=== PATIENT | male | born 1980 | race Two or more races ===

== ENCOUNTER 2019-11-15 10:27 | Emergency (ER) | payer MEDICAID, OTHER ==
[~2019-11-15] VITALS: Ht 172.7 cm; Wt 77.1 kg
[2019-11-15 10:42] VITALS: BP 137/73
[2019-11-15] MEDS ORDERED: KETOROLAC TROMETH 60MG/2ML VIAL IM ONE (11:45)
[2019-11-15] MEDS ORDERED: METHOCARBAMOL 500 MG TAB PO ONE (11:45)
== END 2019-11-15 11:38 | disposition home or self-care (01) ==
LOC: ER 10:27
DX: L73.9 Follicular disorder, unspecified (principal); F17.210 Nicotine dependence, cigarettes, uncomplicated

== ENCOUNTER 2019-11-29 13:21 | Emergency (ER) | payer MEDICAID ==
[~2019-11-29] VITALS: Ht 172.7 cm; Wt 79.4 kg
[2019-11-29 14:45] VITALS: BP 139/94
== END 2019-11-29 14:59 | disposition home or self-care (01) ==
LOC: ER 13:21
DX: S39.012D Strain of muscle, fascia and tendon of lower back, subsequent encounter (principal); Z76.0 Encounter for issue of repeat prescription; X58.XXXD Exposure to other specified factors, subsequent encounter

== ENCOUNTER 2020-02-07 16:20 | Emergency (ER) | payer MEDICAID ==
[~2020-02-07] VITALS: Ht 172.7 cm; Wt 83.9 kg
[2020-02-07 17:09] VITALS: BP 120/67
[2020-02-07] MEDS ORDERED: cefTRIAXone SOD 1,000 MG VL IM ONE (17:15)
[2020-02-07] MEDS ORDERED: CLINDAMYCIN HCL 150 MG CAP PO ONE (17:15)
== END 2020-02-07 17:23 | disposition home or self-care (01) ==
LOC: ER 16:20
DX: L02.211 Cutaneous abscess of abdominal wall (principal)
CPT/HCPCS: 71046; 74176; 96372; 99284; J0696

== ENCOUNTER 2020-02-11 12:20 | Emergency (ER) | payer MEDICAID ==
[~2020-02-11] VITALS: Ht 172.7 cm; Wt 83.9 kg
[2020-02-11 12:48] VITALS: BP 126/97
== END 2020-02-11 13:53 | disposition home or self-care (01) ==
LOC: ER 12:20
DX: L02.211 Cutaneous abscess of abdominal wall (principal); Z48.01 Encounter for change or removal of surgical wound dressing; F17.210 Nicotine dependence, cigarettes, uncomplicated; F12.10 Cannabis abuse, uncomplicated; F15.10 Other stimulant abuse, uncomplicated

== ENCOUNTER 2020-02-27 10:35 | Emergency (ER) | payer MEDICAID ==
[~2020-02-27] VITALS: Ht 172.7 cm; Wt 83.9 kg
[2020-02-27 11:08] LABS: Basophils # (auto) 0.1 10 ^3/uL (0-0.2); Basophils % (auto) 1.1 % (0.0-2.0); Eosinophils # (auto) 0.4 10 ^3/uL (0-0.8); Eosinophils % (auto) 4.3 % (0.0-7.0); Hemoglobin 16.1 g/dL (13.5-17.5); Mean Corpuscular Hemoglobin 30.7 pg (28.0-32.0); Mean Corpuscular Hgb Conc. 33.5 g/dL (32.0-36.0); Mean Corpuscular Volume 91.6 fL (80.0-100.0); Monocytes # (auto) 0.5 10 ^3/uL (0-1.3); Monocytes % (auto) 5.1 % (0.0-12.0); Neutrophils # (auto) 6.1 10 ^3/uL (1.6-8.6); Neutrophils % (auto) 67.5 % (37.0-80.0); Nucleated Red Blood Cells % 0.1 %; Platelet Count (auto) 373 10^3/uL (140-450); Red Blood Cells 5.24 10^6/uL (4.5-5.90); White Blood Cell 9.1 10^3/uL (4.4-10.8)
[2020-02-27 11:24] VITALS: BP 135/92
[2020-02-27 11:35] LABS: Potassium 3.8 mmol/L (3.5-5.1)
[2020-02-27 11:46] LABS: Albumin 3.9 g/dL (3.4-5.0); BUN/Creatinine Ratio 11.6; Bilirubin, Total 0.2 mg/dL (0.2-1.0); Calcium 9.2 mg/dL (8.5-10.1)
[2020-02-27 12:02] LABS: Urine WBC None Seen /hpf (0 - 3)
[2020-02-27 12:34] LABS: Urine Bacteria NONE SEEN /hpf (None Seen); Urine Blood Negative /uL (Negative); Urine Specific Gravity 1.005 (1.001-1.035)
== END 2020-02-27 12:31 | disposition home or self-care (01) ==
LOC: ER 10:35
DX: R10.9 Unspecified abdominal pain (principal); F15.90 Other stimulant use, unspecified, uncomplicated; F17.210 Nicotine dependence, cigarettes, uncomplicated
CPT/HCPCS: 36415; 74176; 80053; 81001; 85025; 93005

== ENCOUNTER 2021-02-09 11:23 | Emergency (ER) | payer MEDICAID ==
[~2021-02-09] VITALS: Ht 170.2 cm; Wt 83.9 kg
[2021-02-09 11:46] LABS: Urine Bacteria NONE SEEN /hpf (None Seen); Urine Blood Negative /uL (Negative); Urine Specific Gravity 1.015 (1.001-1.035); Urine WBC <1 /hpf (0 - 3)
[2021-02-09 11:49] LABS: Basophils # (auto) 0.1 10 ^3/uL (0-0.2); Basophils % (auto) 0.9 % (0.0-2.0); Eosinophils # (auto) 0.6 10 ^3/uL (0-0.8); Eosinophils % (auto) 5.6 % (0.0-7.0); Hemoglobin 13.7 g/dL (13.5-17.5); Lymphocytes # (auto) 2.6 10 ^3/uL (0.4-5.4); Lymphocytes % (auto) 26.4 % (10.0-50.0); Mean Corpuscular Hemoglobin 29.3 pg (28.0-32.0); Mean Corpuscular Hgb Conc. 33.3 g/dL (32.0-36.0); Mean Corpuscular Volume 87.9 fL (80.0-100.0); Monocytes # (auto) 0.8 10 ^3/uL (0-1.3); Monocytes % (auto) 8.1 % (0.0-12.0); Neutrophils # (auto) 5.9 10 ^3/uL (1.6-8.6); Nucleated Red Blood Cells % 0.2 %; Red Blood Cells 4.66 10^6/uL (4.5-5.90); Red Cell Distribution Width 14.3 % (11.8-14.3); White Blood Cell 9.9 10^3/uL (4.4-10.8)
[2021-02-09 12:01] LABS: Alcohol, Urine < 3.0 mg/dL (0-10); Amphetamine Screen, Urine NEGATIVE (NEGATIVE); Barbiturate Scree,Urine NEGATIVE (NEGATIVE); Benzodiazephine Screen, Urine NEGATIVE (NEGATIVE); Cannabinoid Screen, Urine POSITIVE (NEGATIVE); Cocaine Screen, Urine NEGATIVE (NEGATIVE); Phencyclidine Screen, Urine NEGATIVE (NEGATIVE)
[2021-02-09 12:08] LABS: Opiate Scree,Urine NEGATIVE (NEGATIVE)
[2021-02-09 12:31] LABS: Alanine Aminotransferase 27 U/L (16-61); Albumin 3.2 g/dL (3.4-5.0); Anion Gap 7 (5-15); Aspartate Aminotransferase 14 U/L (15-37); BUN/Creatinine Ratio 10.8; Blood Urea Nitrogen 9 mg/dL (7-18); Calcium 8.2 mg/dL (8.5-10.1); Carbon Dioxide 27 mmol/L (21-32); Chloride 108 mmol/L (98-107); GFR African American 133 mL/min; GFR Non-African American 110 mL/min; Glucose 87 mg/dL (74-106); Potassium 3.9 mmol/L (3.5-5.1); Sodium 142 mmol/L (136-145)
[2021-02-09 12:36] LABS: Alkaline Phosphatase 92 U/L (45-117); Bilirubin, Total 0.1 mg/dL (0.2-1.0)
[2021-02-09] MEDS ORDERED: IOHEXOL 300 MG/ML 100ML BOTTLE IJ ONE (13:15)
[2021-02-09] MEDS ORDERED: IBUPROFEN 600 MG TAB PO ONE (15:00)
[2021-02-09 21:52] VITALS: BP 131/68
== END 2021-02-09 22:16 | disposition home or self-care (01) ==
LOC: ER 11:23
DX: M43.16 Spondylolisthesis, lumbar region (principal); F17.210 Nicotine dependence, cigarettes, uncomplicated; F15.10 Other stimulant abuse, uncomplicated
CPT/HCPCS: 36415; 72132; 80053; 80307; 81001; 83605; 84484; 85025; 85652; 93005; 99285; Q9967

== ENCOUNTER 2021-03-06 09:30 | Emergency (ER) | payer MEDICAID ==
[~2021-03-06] VITALS: Ht 172.7 cm; Wt 83.9 kg
[2021-03-06 10:35] VITALS: BP 113/83
[2021-03-06] MEDS ORDERED: KETOROLAC TROMETH 60MG/2ML VIAL IM ONE (11:00)
== END 2021-03-06 11:27 | disposition home or self-care (01) ==
LOC: ER 09:30
DX: S39.012A Strain of muscle, fascia and tendon of lower back, initial encounter (principal); M48.061 Spinal stenosis, lumbar region without neurogenic claudication; M51.86 Other intervertebral disc disorders, lumbar region; F17.210 Nicotine dependence, cigarettes, uncomplicated; X58.XXXA Exposure to other specified factors, initial encounter; Y93.89 Activity, other specified; Y92.89 Other specified places as the place of occurrence of the external cause; Y99.8 Other external cause status
CPT/HCPCS: 96372; 99283; J1885

== ENCOUNTER 2021-04-30 08:18 | Emergency (ER) | payer MEDICAID ==
[~2021-04-30] VITALS: Ht 172.7 cm; Wt 81.6 kg
[2021-04-30 13:11] VITALS: BP 108/73
== END 2021-04-30 13:32 | disposition home or self-care (01) ==
LOC: ER 08:18
DX: J98.01 Acute bronchospasm (principal); F15.10 Other stimulant abuse, uncomplicated; F17.210 Nicotine dependence, cigarettes, uncomplicated; Z20.822 Contact with and (suspected) exposure to COVID-19
CPT/HCPCS: 36415; 71046; 87426

== ENCOUNTER 2021-11-15 17:16 | Emergency (ER) | payer MEDICAID ==
[~2021-11-15] VITALS: Ht 170.2 cm; Wt 83.9 kg
[2021-11-15] MEDS ORDERED: ONDANSETRON HCL 4 MG/2 ML VIAL IV ONE (17:30)
[2021-11-15] MEDS ORDERED: PANTOPRAZOLE 40 MG/10 ML VIAL INJ IV ONE (17:30)
[2021-11-15] MEDS ORDERED: SODIUM CHLORIDE 0.9% 1,000 ML IV ONE (18:15)
[2021-11-15 19:03] LABS: Basophils # (auto) 0.1 10 ^3/uL (0-0.2); Basophils % (auto) 1.1 % (0.0-2.0); Eosinophils # (auto) 0.5 10 ^3/uL (0-0.8); Eosinophils % (auto) 5.9 % (0.0-7.0); Hematocrit 43.4 % (41.0-53.0); Hemoglobin 14.4 g/dL (13.5-17.5); Lymphocytes # (auto) 1.9 10 ^3/uL (0.4-5.4); Lymphocytes % (auto) 22.9 % (10.0-50.0); Mean Corpuscular Hgb Conc. 33.3 g/dL (32.0-36.0); Mean Corpuscular Volume 90.1 fL (80.0-100.0); Monocytes # (auto) 0.5 10 ^3/uL (0-1.3); Monocytes % (auto) 5.8 % (0.0-12.0); Neutrophils # (auto) 5.3 10 ^3/uL (1.6-8.6); Neutrophils % (auto) 64.3 % (37.0-80.0); Nucleated Red Blood Cells % 0.2 %; Red Blood Cells 4.81 10^6/uL (4.5-5.90); Red Cell Distribution Width 14.2 % (11.8-14.3); White Blood Cell 8.3 10^3/uL (4.4-10.8)
[2021-11-15 19:25] LABS: Albumin 3.9 g/dL (3.4-5.0); Amylase 63 U/L (25-115); Anion Gap 9 (5-15); Blood Alcohol < 3.0 mg/dL (0-5); Blood Urea Nitrogen 10 mg/dL (7-18); Calcium 8.9 mg/dL (8.5-10.1); Carbon Dioxide 22 mmol/L (21-32); Chloride 113 mmol/L (98-107); Glucose 119 mg/dL (74-106); Lipase 95 U/L (73-393); Sodium 144 mmol/L (136-145)
[2021-11-15 19:33] LABS: Alanine Aminotransferase 84 U/L (16-61); Alkaline Phosphatase 79 U/L (45-117); Aspartate Aminotransferase 38 U/L (15-37); BUN/Creatinine Ratio 9.1; Bilirubin, Total 0.2 mg/dL (0.2-1.0); GFR African American 95 mL/min; GFR Non-African American 79 mL/min; Total Protein 7.4 g/dL (6.4-8.2)
[2021-11-15 19:44] LABS: Urine Bacteria NONE SEEN /hpf (None Seen); Urine Blood Negative /uL (Negative); Urine Specific Gravity 1.014 (1.001-1.035); Urine WBC 1 /hpf (0 - 3)
[2021-11-15 19:45] LABS: Alcohol, Urine < 3.0 mg/dL (0-10); Amphetamine Screen, Urine NEGATIVE (NEGATIVE); Barbiturate Scree,Urine NEGATIVE (NEGATIVE); Benzodiazephine Screen, Urine NEGATIVE (NEGATIVE); Cannabinoid Screen, Urine POSITIVE (NEGATIVE); Cocaine Screen, Urine NEGATIVE (NEGATIVE); Opiate Scree,Urine NEGATIVE (NEGATIVE); Phencyclidine Screen, Urine NEGATIVE (NEGATIVE)
[2021-11-15] MEDS ORDERED: ONDA-144 PO (20:13)
[2021-11-15] MEDS ORDERED: PANT40TA2 PO (20:13)
[2021-11-15 22:25] VITALS: BP 139/88
== END 2021-11-16 02:25 | disposition home or self-care (01) ==
LOC: ER 17:16
DX: R10.84 Generalized abdominal pain (principal); F10.10 Alcohol abuse, uncomplicated; R19.7 Diarrhea, unspecified; F17.210 Nicotine dependence, cigarettes, uncomplicated; Y90.0 Blood alcohol level of less than 20 mg/100 ml
CPT/HCPCS: 36415; 74176; 80053; 80307; 80320; 81001; 82150; 83690; 84484; 85025; 93005; 96361; 96374; 96375; 99285; C9113; J2405; J7030

== ENCOUNTER 2022-02-22 05:56 | Emergency (ER) | payer MEDICAID ==
[~2022-02-22] VITALS: Ht 172.7 cm; Wt 82.0 kg
[~2022-02-22 05:56] MED LIST: ONDA-144 PO; PANT40TA2 PO
[2022-02-22 08:18] VITALS: BP 126/78
[2022-02-22] MEDS ORDERED: IBUP800T27 PO (08:48)
[2022-02-22] MEDS ORDERED: METH750T22 PO (08:49)
[2022-02-22] MEDS ORDERED: IBUPROFEN 800 MG TAB PO ONE (09:00)
== END 2022-02-22 08:58 | disposition home or self-care (01) ==
LOC: ER 05:56
DX: S46.912A Strain of unspecified muscle, fascia and tendon at shoulder and upper arm level, left arm, initial encounter (principal); F17.210 Nicotine dependence, cigarettes, uncomplicated; Z79.1 Long term (current) use of non-steroidal anti-inflammatories (NSAID); Z79.899 Other long term (current) drug therapy; X58.XXXA Exposure to other specified factors, initial encounter; Y93.89 Activity, other specified; Y92.89 Other specified places as the place of occurrence of the external cause; Y99.8 Other external cause status

== ENCOUNTER 2022-08-09 10:03 | Emergency (ER) | payer MEDICAID ==
[~2022-08-09] VITALS: Ht 170.2 cm; Wt 83.1 kg
[~2022-08-09 10:03] MED LIST changes: +IBUP800T27 PO; +METH750T22 PO
[2022-08-09] MEDS ORDERED: CLIN300C8 PO (12:01)
[2022-08-09] MEDS ORDERED: IBUP800T27 PO (12:01)
[2022-08-09 12:06] VITALS: BP 131/92
== END 2022-08-09 12:07 | disposition home or self-care (01) ==
LOC: ER 10:03
DX: K04.7 Periapical abscess without sinus (principal); F17.210 Nicotine dependence, cigarettes, uncomplicated; Z79.1 Long term (current) use of non-steroidal anti-inflammatories (NSAID); Z79.2 Long term (current) use of antibiotics; Z79.899 Other long term (current) drug therapy

== ENCOUNTER 2022-09-14 12:31 | Emergency (ER) | payer MEDICAID ==
[~2022-09-14] VITALS: Ht 170.2 cm; Wt 80.8 kg
[~2022-09-14 12:31] MED LIST changes: +CLIN300C8 PO
[2022-09-14 12:51] VITALS: BP 125/85
[2022-09-14] MEDS ORDERED: DOXY-286 PO (14:50)
== END 2022-09-14 14:51 | disposition home or self-care (01) ==
LOC: ER 12:31
DX: L03.114 Cellulitis of left upper limb (principal); F17.210 Nicotine dependence, cigarettes, uncomplicated; F12.10 Cannabis abuse, uncomplicated

== ENCOUNTER 2023-07-25 11:46 | Emergency (ER) | payer MEDICAID ==
[~2023-07-25] VITALS: Ht 170.2 cm; Wt 90.6 kg
[~2023-07-25 11:46] MED LIST changes: +CLIN300C70 PO; -CLIN300C8 PO; +DOXY-286 PO; +IBUP-1456 PO; -IBUP800T27 PO; +METH-1182 PO; -METH750T22 PO
[2023-07-25 12:44] VITALS: BP 121/86; PULSE 73; RESP 16; TEMP 98.5; O2SAT 96
[2023-07-25] MEDS ORDERED: IBUP1TAB5 PO (13:58)
== END 2023-07-25 14:16 | disposition home or self-care (01) ==
LOC: ER 11:46
DX: K08.89 Other specified disorders of teeth and supporting structures (principal); F41.9 Anxiety disorder, unspecified; F17.210 Nicotine dependence, cigarettes, uncomplicated; F15.90 Other stimulant use, unspecified, uncomplicated; Z79.899 Other long term (current) drug therapy

== ENCOUNTER 2024-07-27 12:20 | Emergency (ER) | payer MEDICAID ==
[~2024-07-27] VITALS: Ht 170.2 cm; Wt 82.8 kg
[~2024-07-27 12:20] MED LIST changes: +CLIN1CAP70 PO; -CLIN300C70 PO; +IBUP1TAB5 PO
[2024-07-27] MEDS ORDERED: ERY05OO OP (15:00)
--- NOTE | 2024-07-27 15:00 | ED.PDOC ---
Eye-HPI HPI Comments 44 year male presents for conjunctival injection to the left eye Denies vision changes Denies eye discharge Denies hearing changes, nausea, vomiting Denies eye pain with movement, eye pain in general, difficulty keeping eye open, feeling of something stuck in the eye, sensitivity to light Chief Complaint: Eye Problem Time Seen by MD: 13:09 Primary Care Provider: MARLEN Niño Notes: Nurses Notes, Medications, Allergies Allergies: Coded Allergies: NO KNOWN ALLERGIES (Unverified , 11/15/19) Home Meds Active Scripts Ibuprofen Micronized (Ibuprofen) 600 Mg Tab, 600 MG PO Q6HPRN PRN for 5 Days, #20 TAB Prov:ARCENIO JONES PLUMBING INSTALLER 07/25/23 Doxycycline Hyclate (DOXYCYCLINE HYCLATE) 100 Mg Tab, 1 TAB PO BID for 14 Days, #28 TAB Prov:LAURA BECERRIL DO 09/14/22 Ibuprofen (Ibuprofen) 800 Mg Tab, 1 TAB PO TID, #30 TAB Prov:KING ADAMS 08/09/22 Clindamycin Hcl (Clindamycin Hcl) 300 Mg Cap, 300 MG PO QID, #32 CAP Prov:KING ADAMS 08/09/22 Methocarbamol (Methocarbamol) 750 Mg Tab, 750 MG PO QHSP PRN for 20 Days, #20 TAB Prov:KING ADAMS 02/22/22 Ibuprofen (Ibuprofen) 800 Mg Tab, 800 MG PO TID PRN, #30 TAB Prov:KING ADAMS 02/22/22 Pantoprazole Sodium Sesquihydr (Protonix) 40 Mg Tab, 40 MG PO DAILY, #30 TAB Prov:JOHN PICKETT MD 11/15/21 Ondansetron (Zofran) 4 Mg Tab, 1 TAB PO Q6HR, #20 TAB Prov:JOHN PICKETT MD 11/15/21 Information Source: Patient Mode of Arrival: Ambulatory Past Medical History PAST MEDICAL HISTORY: Anxiety Surgical History: Denies all surgeries Family History Family History: Reviewed,noncontributory to illness Social History Smoker: Cigarettes, Greater Than 1 Pack/Day Alcohol: Occasionally Drugs: Marijuana Lives In: Home All Other Systems: Reviewed and Negative (per hpi) Physical Exam General Appearance: No Apparent Distress, Normal HEENT: Normal ENT Inspection, PERRL/EOMI (L eye: conjunctival injection. vision intact), Pharynx Normal, TMs Normal Neck: Full Range of Motion, Non-Tender, Normal, Normal Inspection Respiratory: Chest Non-Tender, Lungs Clear, No Accessory Muscle Use, No Respiratory Distress, Normal Breath Sounds Cardiovascular: No Edema, No JVD, No Murmur, No Gallop, Normal Peripheral Pulses, Regular Rate/Rhythm Breast Exam: Deferred Gastrointestinal: No Organomegaly, Non Tender, No Pulsatile Mass, Normal Bowel Sounds, Soft Genitalia: Deferred Pelvic: Deferred Rectal: Deferred Extremities: No calf tenderness, Normal capillary refill, Normal inspection, Normal range of motion, Non-tender, No pedal edema Musculoskeletal : Apperance: Normal Neurologic: Alert, outside sales engineer II-XII nml as Tested, No Motor Deficits, Normal Affect, Normal Mood, No Sensory Deficits Cerebellar Function: Normal Reflexes: Normal Skin: Dry, Normal Color, Warm Lymphatic: No Adenopathy Was a procedure done? Was a procedure done?: No EENT DIFF Eye: Bacterial, Viral X-Ray, Labs, Meds, VS Vital Signs Date Time Temp Pulse Resp B/P (MAP) Pulse Ox O2 Delivery O2 Flow Rate FiO2 07/27/24 12:40 98.9 133 20 143/106 (118) 100 X-Ray, Labs, Meds, VS Comment Presentation consistent with bacterial conjunctivitis. Patient is otherwise afebrile and well-appearing without clinical evidence of pre-septal cellulitis or orbital cellulitis. No recent history concerning for corneal abrasion or retained foreign body. No corneal opacity of keratitis, no ciliary flush on exam Prescription for topical antibiotics provided. On reevaluation, patient had symptomatic improvement. Patient is stable for discharge at this time. External notes reviewed. Test results and diagnostic imaging interpreted. All diagnostic findings, discharge care, education and instructions provided Follow-up with PCP in 2 to 3 days Patient verbalized understanding and agreed to treatment plan Vital signs stable, afebrile, no acute distress noted Patient ambulatory with strong steady gait Advised to return precautions for any new or worsening symptoms, return to ER immediately for re-evaluation Patient is aware that the purpose of this visit was for an acute medical emergency requiring emergent stabilization. Chronic conditions, including malignancies have not been ruled out. Patient is instructed to follow up with PCP as directed and discharge instructions for continued care and workup. If unable to arrange follow-up, patient is to return to the emergency department for reassessment. Patient (parent or legal guardian if applicable) was given verbal and written discharge instructions and acknowledges understanding. Time of 1ST Reevaluation: 14:51 Reevaluation 1ST: Improved Patient Education/Counseling: Diagnosis, Treatment Family Education/Counseling: Diagnosis, Treatment Departure 1 Departure Time of Disposition: 14:58 Impression: Primary Impression: Conjunctivitis Qualified Codes: H10.32 - Unspecified acute conjunctivitis, left eye Disposition: HOME / SELF CARE / HOMELESS Condition: Stable e-Prescriptions Erythromycin (Erythromycin) 5 Mg/Gm Oin 1 APPLIC OP QID for 10 Days, #5 GRAMS 0 Refills Prov: ADELINE CLINE PLUMBING INSTALLER 07/27/24 Critical Care Note Critical Care Time?: No Stability Stability form required: No Heart Score Heart Score: Heart Score Response (Comments) Value History N/A 0 EKG N/A 0 Age N/A 0 Risk Factors N/A 0 Troponin N/A 0 Total 0 ADELINE CLINE PLUMBING INSTALLER Jul 27, 2024 15:00
[2024-07-27 15:18] VITALS: BP 143/106; PULSE 133; RESP 20; TEMP 98.9; O2SAT 100
== END 2024-07-27 15:20 | disposition home or self-care (01) ==
LOC: ER 12:20
DX: H10.9 Unspecified conjunctivitis (principal); F41.9 Anxiety disorder, unspecified; F17.210 Nicotine dependence, cigarettes, uncomplicated; Z79.899 Other long term (current) drug therapy

== ENCOUNTER 2024-08-20 09:12 | Emergency (ER) | payer MEDICAID ==
[~2024-08-20] VITALS: Ht 170.2 cm; Wt 82.1 kg
[~2024-08-20 09:12] MED LIST changes: +ERY05OO OP
[2024-08-20 09:23] VITALS: BP 149/102; TEMP 98.4
[2024-08-20 09:38] VITALS: PULSE 90; RESP 18; O2SAT 98
--- NOTE | 2024-08-20 09:46 | ED.PDOC ---
History of Present Illness HPI Comments A 44 YEAR OLD MALE PRESENTS TO THE ED WITH COMPLAINT OF BILATERAL HAND PAIN. PATIENT STATES HE HAS BEEN EXPERIENCING BILATERAL HAND PAIN FOR THE PAST 3 DAYS. 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 PT IS ABLE TO MOVE HIS HANDS WITH NORMAL ROM. PATIENT DENIES FEVER, CHILLS, SHORTNESS OF BREATH, CHEST PAIN, ABDOMINAL PAIN, NAUSEA, VOMITING, HEADACHE, OR OTHER COMPLAINTS. NO OTHER SYMPTOMS OR MODIFYING FACTORS AT THIS TIME. PATIENT IS ALERT, ORIENTED X 4, AND HAS STEADY GAIT. Chief Complaint: Upper Extremity Time Seen by MD: 09:20 Primary Care Provider: MARLEN Reviewed Notes: Nurses Notes, Medications, Allergies Allergies: Coded Allergies: NO KNOWN ALLERGIES (Unverified , 11/15/19) Home Meds Active Scripts Erythromycin (Erythromycin) 5 Mg/Gm Oin, 1 APPLIC OP QID for 10 Days, #5 GRAMS 0 Refills Prov:ADELINE CLINE CHLORINATOR OPERATOR 07/27/24 Ibuprofen Micronized (Ibuprofen) 600 Mg Tab, 600 MG PO Q6HPRN PRN for 5 Days, #20 TAB Prov:ARCENIO JONES CHLORINATOR OPERATOR 07/25/23 Doxycycline Hyclate (DOXYCYCLINE HYCLATE) 100 Mg Tab, 1 TAB PO BID for 14 Days, #28 TAB Prov:LAURA BECERRIL DO 09/14/22 Ibuprofen (Ibuprofen) 800 Mg Tab, 1 TAB PO TID, #30 TAB Prov:KING ADAMS 08/09/22 Clindamycin Hcl (Clindamycin Hcl) 300 Mg Cap, 300 MG PO QID, #32 CAP Prov:KING ADAMS 08/09/22 Methocarbamol (Methocarbamol) 750 Mg Tab, 750 MG PO QHSP PRN for 20 Days, #20 TAB Prov:KING ADAMS 02/22/22 Ibuprofen (Ibuprofen) 800 Mg Tab, 800 MG PO TID PRN, #30 TAB Prov:KING ADAMS 02/22/22 Pantoprazole Sodium Sesquihydr (Protonix) 40 Mg Tab, 40 MG PO DAILY, #30 TAB Prov:JOHN PICKETT MD 11/15/21 Ondansetron (Zofran) 4 Mg Tab, 1 TAB PO Q6HR, #20 TAB Prov:JOHN PICKETT MD 11/15/21 Information Source: Patient Mode of Arrival: Ambulatory Severity: Moderate Timing: Days Duration: Since onset, Days Medication Refill: For: Other (BILATERAL HAND PAIN) Past Medical History PAST MEDICAL HISTORY: Anxiety Surgical History: Denies all surgeries Family History Family History: Reviewed,noncontributory to illness Social History Smoker: Cigarettes, Greater Than 1 Pack/Day Alcohol: Occasionally Drugs: Marijuana Lives In: Home Constitutional: denies: chills, diaphoresis, fatigue, fever, malaise, sweats, weakness, others EENTM: denies: blurred vision, double vision, ear bleeding, ear discharge, ear drainage, ear pain, ear ringing, eye pain, eye redness, hearing loss, mouth pain, mouth swelling, nasal discharge, nose bleeding, nose congestion, nose pain, photophobia, tearing, throat pain, throat swelling, voice changes, others Respiratory: denies: cough, hemoptysis, orthopnea, SOB at rest, shortness of breath, SOB with excertion, stridor, wheezing, others Cardiovascular: denies: chest pain, dizzy spells, diaphoresis, Dyspnea on exertion, edema, irregular heart beat, left arm pain, lightheadedness, palpitations, PND, syncope, others Gastrointestinal: denies: abdomen distended, abdominal pain, blood streaked bowels, constipated, diarrhea, dysphagia, difficulty swallowing, hematemesis, melena, nausea, poor appetite, poor fluid intake, rectal bleeding, rectal pain, vomiting, others Genitourinary: denies: burning, dysuria, flank pain, frequency, hematuria, incontinence, penile discharge, penile sore, pain, testicle pain, testicle swel ling, urgency, others Neurological: denies: dizziness, fainting, headache, left sided numbness, left sided weakness, numbness, paresthesia, pre-existing deficit, right sided numbness, right sided weakness, seizure, speech problems, tingling, tremors, weakness, others Musculoskeletal: reports: muscle pain, others (BILATERAL HAND PAIN); denies: back pain, gout, joint pain, joint swelling, muscle stiffness, neck pain Integumetry: denies: bruises, change in color, change in hair/nails, dryness, laceration, lesions, lumps, rash, wounds, others Allergic/Immunocompromised: denies: Difficulty Healing, Frequent Infections, Hives, Itching, others Hematologic/Lymphatic: denies: anemia, blood clots, easy bleeding, easy bruising, swollen glands, others Endocrine: denies: excessive hunger, excessive sweating, excessive thirst, excessive urination, flushing, intolerance to cold, intolerance to heat, unexplained weight gain, unexplained weight loss, others Psychiatric: denies: anxiety, bipolar disorder, depression, hopeless, panic disorder, schizophrenia, sleepless, suicidal, others All Other Systems: Reviewed and Negative Physical Exam General Appearance: No Apparent Distress, Normal HEENT: Normal ENT Inspection, PERRL/EOMI, Pharynx Normal, TMs Normal Neck: Full Range of Motion, Non-Tender, Normal, Normal Inspection Respiratory: Chest Non-Tender, Lungs Clear, No Accessory Muscle Use, No Respiratory Distress, Normal Breath Sounds Cardiovascular: No Edema, No JVD, No Murmur, No Gallop, Normal Peripheral Pulses, Regular Rate/Rhythm Breast Exam: Deferred Gastrointestinal: No Organomegaly, Non Tender, No Pulsatile Mass, Normal Bowel Sounds, Soft Genitalia: Deferred Pelvic: Deferred Rectal: Deferred Extremities: No calf tenderness, Normal capillary refill, Normal range of motion, No pedal edema, Tender (BILATERAL HAND, NO BONY TENDERNESS, SWELLING AND DEFORMITY. NO OPEN WOUND AND REDNESS OF BILATERAL HANDS. ) Musculoskeletal : Apperance: Normal Neurologic: Alert, engineer intern II-XII nml as Tested, No Motor Deficits, Normal Affect, Normal Mood, No Sensory Deficits Cerebellar Function: Normal Reflexes: Normal Skin: Dry, Normal Color, Warm Peripheral Pulses: 2+ carotid (R), 2+ carotid (L), 2+ Radial (R), 2+ Radial (L) Lymphatic: No Adenopathy Was a procedure done? Was a procedure done?: No Differential Dx Considerations may include: BILATERAL HAND PAIN, SPRAIN, MUSCLE STRAIN, CARPAL TUNNEL SYNDROME X-Ray, Labs, Meds, VS Vital Signs Date Time Temp Pulse Resp B/P (MAP) Pulse Ox O2 Delivery O2 Flow Rate FiO2 08/20/24 09:38 90 18 98 Room Air 08/20/24 09:23 98.4 90 18 149/102 (118) 98 98.4 X-Ray, Labs, Meds, VS Comment EXTERNAL MEDICAL RECORDS REVIEWED: [NONE] INDEPENDENT HISTORIANS: [NONE] SOCIAL DETERMINANTS OF HEALTH: [NONE] LABS ORDERED: NONE REVIEWED AND INTERPRETED RESULTS: NONE IMAGING ORDERED: NONE TREATMENTS ORDERED: TORADOL 60MG IM PROCEDURES PERFORMED: NONE CRITICAL CARE TIME: NONE I HAVE DISCUSSED THE PATIENT WITH THE ATTENDING PHYSICIAN DR. CIRILO LEWIS AND SHE AGREES WITH THE PATIENT'S PLAN OF CARE AND DISPOSITION. BASED ON HISTORY OF PRESENT ILLNESS, AND PHYSICAL EXAM, PATIENT WILL BE DISCHARGED HOME. DISCUSSED PLAN FOR DISCHARGE HOME WITH RX [NAPROXEN]. MEDICATION WARNINGS GIVEN. SHARED DECISION MAKING: PATIENT INSTRUCTED TO FOLLOW UP WITH PRIMARY CARE PROVIDER IN 1-2 DAYS FOR RE-EVALUATION OF SYMPTOMS. PATIENT VERBALIZES UNDERSTANDING TO RETURN TO ED FOR NEW OR WORSENING SYMPTOMS OR IF FOLLOW UP WITH PCP CANNOT BE OBTAINED. PATIENT FEELS COMFORTABLE GOING HOME AT THIS TIME. ALL QUESTIONS ADDRESSED AT TIME OF DISCHARGE. Time of 1ST Reevaluation: 10:20 Reevaluation 1ST: Improved Patient Education/Counseling: Diagnosis, Treatment, Need For Follow Up Family Education/Counseling: Diagnosis, Treatment, Need For Follow Up Medical Screening: No EMC Exist At This Time Departure 1 Departure Time of Disposition: 10:20 Impression: Primary Impression: Repetitive strain injury of both hands Disposition: 01 HOME / SELF CARE / HOMELESS Condition: Stable Additional Instructions: FOLLOW-UP WITH PCP IN 1 TO 2 DAYS. TAKE MEDICATIONS PRESCRIBED. RETURN TO ED FOR ANY NEW OR WORSENING SYMPTOMS. e-Prescriptions Naproxen (Naproxen) 500 Mg Tab 500 MG PO BID, #30 TAB Prov: KING ADAMS 08/20/24 Discharged With: Self Critical Care Note Critical Care Time?: No Stability Stability form required: No I personally scribed for KING ADAMS ([email or web address]) on 08/20/24 at 09:46. Electronically submitted by Jamaal Borges ([email or web address]). KING ADAMS Aug 20, 2024 09:46
[2024-08-20] MEDS: KETOROLAC TROMETH 60MG/2ML VIAL IM ONE (09:52)
[2024-08-20] MEDS ORDERED: NAPR-746 PO (09:59)
== END 2024-08-20 10:03 | disposition home or self-care (01) ==
LOC: ER 09:12
DX: S66.812A Strain of other specified muscles, fascia and tendons at wrist and hand level, left hand, initial encounter (principal); S66.811A Strain of other specified muscles, fascia and tendons at wrist and hand level, right hand, initial encounter; F41.9 Anxiety disorder, unspecified; F17.210 Nicotine dependence, cigarettes, uncomplicated; Z79.899 Other long term (current) drug therapy; X58.XXXA Exposure to other specified factors, initial encounter; Y93.89 Activity, other specified; Y92.89 Other specified places as the place of occurrence of the external cause; Y99.8 Other external cause status
CPT/HCPCS: 96372; 99283; J1885

== ENCOUNTER 2025-02-01 19:33 | Emergency (ER) | payer MEDICAID ==
[~2025-02-01] VITALS: Ht 170.2 cm; Wt 84.0 kg
[~2025-02-01 19:33] MED LIST changes: +NAPR-746 PO
--- NOTE | 2025-02-01 20:32 | DVH ---
CHEST RADIOGRAPH Indication: cough Technique: 2 views Comparison: CHEST TWO VIEWS ROUTINE on DOS: 04/30/21, CHEST TWO VIEWS ROUTINE on DOS: 02/07/20 FINDINGS: Lines and Tubes: None Lungs/Pleura: No focal consolidation, pleural effusion or pneumothorax. Cardiomediastinum: Unremarkable. Other: No acute osseous abnormality. IMPRESSION: 1. No acute cardiopulmonary abnormality.
[2025-02-01 23:16] VITALS: BP 129/96; PULSE 90; RESP 18; TEMP 97.7; O2SAT 99
[2025-02-01] MEDS ORDERED: ACET500T58 PO (23:16)
--- NOTE | 2025-02-01 23:16 | ED.PDOC ---
History of Present Illness HPI Comments 44-year-old male presents to ER with complaints of flu-like symptoms x2 days. Patient reports he has been experiencing intermittent body aches, congestion and intermittent frontal headache x2 days. He rates his current pain a 5/10 and states he did take an at home COVID-19 test 2 days ago that came back "pos itive". Patient presents to ER ambulatory on arrival, with steady, in no distress. Notes he did experience some shortness of breath earlier today that he states has since fully subsided, denying any current shortness of breath. Denies fever, cough, chest pain, sore throat, dizziness, known exposure to sick contacts, night sweats or any further symptoms/complaints Chief Complaint: Flu like Time Seen by MD: 20:00 Primary Care Provider: UNKNOWN Reviewed Notes: Nurses Notes, Medications, Allergies Information Source: Patient Mode of Arrival: Ambulatory Past Medical History PAST MEDICAL HISTORY: Anxiety Surgical History: Denies all surgeries Family History Family History: Unknown Social History Smoker: Cigarettes, Less Than 1 Pack/Day Alcohol: Occasionally Drugs: Denies Drug Use Lives In: Home Constitutional: See HPI EENTM: See HPI Respiratory: See HPI Cardiovascular: No Symptoms Reported Gastrointestinal: No Symptoms Reported Genitourinary: No Symptoms Reported Neurological: See HPI Musculoskeletal: No Symptoms Reported Integumentary: No Symptoms Reported Allergic/Immunocompromised: others (DENIES) Hematologic/Lymphatic: No Symptoms Reported Endocrine: No Symptoms Reported Psychiatric: No symptoms Reported Physical Exam General Appearance: No Apparent Distress HEENT: Normal ENT Inspection, PERRL/EOMI, Pharynx Normal, TMs Normal Neck: Full Range of Motion, Non-Tender, Normal Respiratory: Chest Non-Tender, Lungs Clear, No Accessory Muscle Use, No Respiratory Distress, Normal Breath Sounds Cardiovascular: No Murmur, No Gallop, Regular Rate/Rhythm Breast Exam: Deferred Gastrointestinal: NOT DONE Genitalia: Deferred Pelvic: Deferred Rectal: Deferred Extremities: Normal capillary refill, Normal range of motion Neurologic: Alert, No Motor Deficits, Normal Affect, Normal Mood, No Sensory Deficits Cerebellar Function: Normal Reflexes: Normal Skin: Dry, Normal Color, Warm Peripheral Pulses: 2+ Radial (R), 2+ Radial (L), 2+ Brachial (R), 2+ Brachial (L) Lymphatic: No Adenopathy Was a procedure done? Was a procedure done?: No Sedation Sedation?: No Fever Differential Dx Differential Diagnosis: Pneumonia, Pulmonary Embolus, Respiratory Failure, Sepsis, Pharyngitis X-Ray, Labs, Meds, VS Vital Signs Date Time Temp Pulse Resp B/P (MAP) Pulse Ox O2 Delivery O2 Flow Rate FiO2 02/01/25 23:16 97.7 90 18 129/96 (107) 99 97.7 02/01/25 23:16 90 18 99 Room Air 02/01/25 19:35 97.8 110 18 124/75 97 97.8 PATIENT: MAXIM ORTEGACCT: [id number]: [id number] : 1980 LOC: ER ROOM / BED: / AGE / SEX: 44 / M ADM STATUS: REG ER SERVICE 99 ORDERING PHYSICIAN: SANDHYA SCHOFIELD PROCEDURE(s): CXR2 - CHEST TWO VIEWS ROUTINE REASON: cough ORDER NUMBER(s): [id number], ACCESSION NUMBER(s): [id number] CHEST RADIOGRAPH Indication: cough Technique: 2 views Comparison: CHEST TWO VIEWS ROUTINE on DOS: 04/30/21, CHEST TWO VIEWS ROUTINE on DOS: 02/07/20 FINDINGS: Lines and Tubes: None Lungs/Pleura: No focal consolidation, pleural effusion or pneumothorax. Cardiomediastinum: Unremarkable. Other: No acute osseous abnormality. IMPRESSION: 1. No acute cardiopulmonary abnormality. ATED BY: WENDY TESFAYE MD DICTATED DATE/TIME: 02/01/252029 SIGNED BY: WENDY TESFAYE MD SIGNED DATE/TIME: 02/01/252029 CC: CHEST X-RAY REVIEWED PATIENT HAD IMPROVEMENT IN SYMPTOMS, DENIED ANY SHORTNESS OF BREATH AND IN NO DISTRESS PRIOR TO DISCHARGE ADVISED TO DRINK PLENTY OF FLUIDS SMOKING CESSATION DISCUSSED AND ADVISED ADVISED TO FOLLOW UP WITH PCP IN 1-2 DAYS PATIENT VERBALIZED UNDERSTANDING AND AGREEABLE WITH CURRENT PLAN OF CARE ADVISED TO RETURN TO ER IMMEDIATELY IF SYMPTOMS WORSEN Images Reviewed?: Images reviewed and evaluated by me Time of 1ST Reevaluation: 22:54 Reevaluation 1ST: N/A Patient Education/Counseling: Diagnosis, Treatment, Prognosis, Need For Follow Up Family Education/Counseling: No Family Present SEPSIS Sepsis Screen Date sepsis recognized/suspect: Feb 01, 2025 Time Sepsis recognized/suspect: 1936 Recent Procedure: No On Antibiotic Therapy: No Respiratory Rate >20: No Heart Rate >90: Yes Temp<36 C (96.8 F) or >38.3 C: No SBP <90 or MAP <65 mmHG: No New Acute Mental Status Change: No Is the patient on CPAP, BIPAP,: No Physician Orders Chest Two Views Routine (02/01/25 20:00) Vital Signs Date Time Temp Pulse Resp B/P (MAP) Pulse Ox O2 Delivery O2 Flow Rate FiO2 02/01/25 23:16 97.7 90 18 129/96 (107) 99 97.7 02/01/25 23:16 90 18 99 Room Air 02/01/25 19:35 97.8 110 18 124/75 97 97.8 Departure 1 Departure Time of Disposition: 23:12 Impression: Primary Impression: Viral sinusitis Additional Impression: History of COVID-19 Disposition: 01 HOME / SELF CARE / HOMELESS Condition: Stable e-Prescriptions Acetaminophen (Acetaminophen) 500 Mg Tab 500 MG PO Q4HPRN, #30 TAB 0 Refills Prov: SANDHYA SCHOFIELD 02/01/25 Discharged With: Self Critical Care Note Critical Care Time?: No Stability Stability form required: No Heart Score Heart Score: Heart Score Response (Comments) Value History N/A 0 EKG N/A 0 Age N/A 0 Risk Factors N/A 0 Troponin N/A 0 Total 0 SANDHYA SCHOFIELD Feb 01, 2025 23:16
== END 2025-02-01 23:25 | disposition home or self-care (01) ==
LOC: ER 19:33
DX: J32.9 Chronic sinusitis, unspecified (principal); F17.210 Nicotine dependence, cigarettes, uncomplicated; F41.9 Anxiety disorder, unspecified; F10.90 Alcohol use, unspecified, uncomplicated; Z86.16 Personal history of COVID-19; Y90.9 Presence of alcohol in blood, level not specified
CPT/HCPCS: 71046

== ENCOUNTER 2025-05-23 16:35 | Emergency (ER) | payer MEDICAID ==
[~2025-05-23] VITALS: Ht 170.2 cm; Wt 85.4 kg
[~2025-05-23 16:35] MED LIST changes: +ACET500T58 PO
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
[2025-05-23 17:29] LABS: Hematocrit 43.5 % (41.0-53.0); Hemoglobin 14.5 g/dL (13.5-17.5); Mean Corpuscular Hemoglobin 29.5 pg (28.0-32.0); Mean Corpuscular Volume 88.6 fL (80.0-100.0); Nucleated Red Blood Cells % 0.1 %
[2025-05-23 17:39] LABS: Albumin 4.5 g/dL (3.2-4.8); Alkaline Phosphatase 72 U/L (46-116); Anion Gap 9 (5-15); BUN/Creatinine Ratio 5.2 (10.0-20.0); Calcium 9.1 mg/dL (8.7-10.4); Carbon Dioxide 28 mmol/L (20-31); Chloride 107 mmol/L (98-107); Glucose 100 mg/dL (74-106); Magnesium 2.0 mg/dL (1.6-2.6); Potassium 4.0 mmol/L (3.5-5.1); Sodium 144 mmol/L (136-145); Total Protein 7.5 g/dL (5.7-8.2)
[2025-05-23 17:40] LABS: Bilirubin, Total 0.5 mg/dL (0.2-1.0)
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
[2025-05-23 18:10] LABS: Alanine Aminotransferase 49 U/L (7-40); Blood Urea Nitrogen 5 mg/dL (9-23)
[2025-05-23 18:23] VITALS: BP 134/110; PULSE 63; RESP 16; TEMP 98.7; O2SAT 97
[2025-05-23 18:55] LABS: Amphetamine Screen, Urine Neg (NEGATIVE)
[2025-05-23 18:57] LABS: Barbiturate Scree,Urine Neg (NEGATIVE); Benzodiazephine Screen, Urine Neg (NEGATIVE); Cannabinoid Screen, Urine Pos (NEGATIVE); Cocaine Screen, Urine Neg (NEGATIVE); Opiate Scree,Urine Neg (NEGATIVE); Phencyclidine Screen, Urine Neg (NEGATIVE)
== END 2025-05-23 19:58 | disposition home or self-care (01) ==
LOC: ER 16:35
DX: J34.89 Other specified disorders of nose and nasal sinuses (principal); F17.210 Nicotine dependence, cigarettes, uncomplicated; F10.90 Alcohol use, unspecified, uncomplicated; F41.9 Anxiety disorder, unspecified; F32.A Depression, unspecified; Z79.899 Other long term (current) drug therapy; Z79.1 Long term (current) use of non-steroidal anti-inflammatories (NSAID); Y08.89XA Assault by other specified means, initial encounter; Y93.89 Activity, other specified; Y92.89 Other specified places as the place of occurrence of the external cause; Y99.8 Other external cause status
CPT/HCPCS: 36415; 70450; 70486; 72125; 80053; 80307; 80320; 83605; 83735; 85025

== ENCOUNTER 2025-06-03 09:43 | Emergency (ER) | payer MEDICAID ==
[~2025-06-03] VITALS: Ht 170.2 cm; Wt 82.2 kg
[2025-06-03 09:44] VITALS: BP 168/104; PULSE 112; RESP 18; TEMP 98.5; O2SAT 96
== END 2025-06-03 10:18 | disposition left against medical advice (07) ==
LOC: ER 09:43
DX: M79.642 Pain in left hand (principal); M79.89 Other specified soft tissue disorders; Z53.21 Procedure and treatment not carried out due to patient leaving prior to being seen by health care provider